=== PATIENT | female | born 1955 | race Caucasian/White ===

== ENCOUNTER 2020-04-19 21:27 | Emergency (ER) | payer OTHER ==
[2020-04-19] MEDS ORDERED: HYDROcodone 10MG/APAP 325MG 1 EA TAB PO ONE (22:14)
[2020-04-19] MEDS ORDERED: predniSONE 10 MG TAB PO ONE (22:14)
--- NOTE | 2020-04-19 22:17 | ED.PDOC ---
History of Present Illness - General Chief Complaint: Respiratory Problem Stated Complaint: Cough, body aches Time Seen by Provider: 04/19/20 22:12 Additional Information: Patient is a 64-year-old female who presents to the ED with chief complaint of Covid-like symptoms. Patient has had sinus congestion for 5 days went to see her PCP who prescribed Augmentin. Shortly after that patient's came down with Covid and now patient has continued sinus congestion with frontal headache, occasional dry cough, generalized weakness and muscle aches. She denies fever or chills, chest pain or shortness of breath. Patient is otherwise healthy with no complaints. - History of Present Illness Allergies/Adverse Reactions: Allergies Sulfa Antibiotics Allergy (Verified 04/19/20 21:48) Home Medications: Ambulatory Orders Acetaminophen [Tylenol] 650 mg PO Q6H #50 tab 04/19/20 Albuterol Inhaler [Ventolin Hfa Inhaler] 2 puff INH Q4H PRN #1 inh 04/19/20 Cetirizine HCl [ZyrTEC] 10 mg PO BEDTIME 04/19/20 DULoxetine HCL [Cymbalta] 20 mg DAILY 04/19/20 Fesoterodine Fumarate [Toviaz] 4 mg PO DAILY 04/19/20 Insulin Aspart Protamine/ (70-30) 100 Unit/ml BID 04/19/20 Lisinopril 60 mg DAILY 04/19/20 Metformin HCl [Fortamet] 1,000 mg PO BID 04/19/20 Metoclopramide HCl 5 mg PO BEDTIME 04/19/20 Nortriptyline HCl [Nortriptyline Hydrochlori] 10 mg BEDTIME 04/19/20 Pantoprazole Sodium [Pantoprazole Sodium Dr] 40 mg PO BID 04/19/20 Prednisone 40 mg PO DAILY #10 tab 04/19/20 Pseudoephedrine HCl [Sudafed 12 Hour] 120 mg PO BID #10 tab 04/19/20 Singulair 10 mg BEDTIME 04/19/20 tiZANidine [Zanaflex] 4 mg PO BID 04/19/20 Review of Systems - Review of Systems Constitutional: States: malaise, weakness EENTM: States: see HPI Respiratory: States: cough. Denies: short of breath Cardiology: States: no symptoms reported. Denies: chest pain, palpitations Gastrointestinal/Abdominal: States: no symptoms reported. Denies: abdominal pain, nausea, vomiting Musculoskeletal: States: muscle pain Skin: States: no symptoms reported. Denies: rash Neurological: States: headache All other Systems: Reviewed and Negative Past Medical History (General) - Patient Medical History Hx Seizures: No Hx Stroke: No Hx Dementia: No Hx Asthma: No Hx of COPD: No Hx Cardiac Disorders: No Hx Congestive Heart Failure: No Hx Pacemaker: No Hx Hypertension: Yes Hx Thyroid Disease: No Hx Diabetes: Yes Hx Gastroesophageal Reflux: Yes Hx Renal Disease: No Hx Cancer: Yes - Skin Hx of HIV: No Hx Hepatitis C: No Hx MRSA: No Surgical History: tonsillectomy, Hysterectomy, other - Vaccination History Hx Tetanus, Diphtheria Vaccination: Yes Hx Influenza Vaccination: Yes Hx Pneumococcal Vaccination: Yes - Social History Hx Tobacco Use: No Hx Chewing Tobacco Use: No Hx Alcohol Use: No Hx Substance Use: No Hx Substance Use Treatment: No Hx Depression: No Feels Threatened In Home Enviroment: No Feels Threatened In a Relationship: No Hx Physical Abuse: No Hx Emotional Abuse: No Hx Suspected Abuse: No - Female History Patient is a Female of Child Bearing Age (10 -59 yrs old): No Patient : No - Triage Comment ED Triage Comment: The patient walked from the waiting room into ER room 4. She was alert and oriented times 4 and complained of shortness of breath, fever, body aches and headache. She denied chest pain, nausea and diarrhea. She is currently being treated with antibiotics by her doctor for sinus infection but her does have COVID. Her symptoms have betting worse over the past week even with antibiotic treatment. Physical Exam - Physical Exam General Appearance: Alert, Comfortable, No apparent distress, Well Developed, Well Nourished ENT Exam: other - Mild frontal sinus tenderness to palpation. Oropharynx is clear without erythema or tonsillar exudate. 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 She is Covid positive but her chest x-ray shows no obvious pneumonia and I have low clinical concern for pneumonia. Patient has viral sinusitis due to Covid and I will DC with steroids and Sudafed and Tylenol patient to rest, quarantine and follow-up with her PCP. Patient's oxygen levels are acceptable and she is safe for discharge with follow-up outpatient, she does not require hospitalization. I discussed with patient to return to the ED specifically for worsening shortness of breath or difficulty breathing. Vital signs stable, patient is NAD and looks clinically well and I believe is safe for discharge with outpatient follow-up. Follow-up instructions, discharge instructions and return to ED precautions discussed with patient. Patient voices understanding and willingness to comply with instructions. All laboratory and/or radiographic results have been discussed with the patient, and all questions answered. Patient is happy with plan. Departure - Departure Clinical Impression: COVID-19, Acute viral sinusitis Disposition: Discharge to Home or Self Care Condition: Good Departure Forms: ED Discharge - Pt. Copy, Patient Portal Self Enrollment Referrals: ELEUTERIO VILLAGOMEZ MD [Primary Care Provider] - 1 Week Prescriptions: Prednisone 40 mg PO DAILY #10 tab Pseudoephedrine HCl [Sudafed 12 Hour] 120 mg PO BID #10 tab Acetaminophen [Tylenol] 650 mg PO Q6H #50 tab Albuterol Inhaler [Ventolin Hfa Inhaler] 2 puff INH Q4H PRN #1 inh PRN Reason: Shortness Of Breath/Wheezing Home Medications: Ambulatory Orders Acetaminophen [Tylenol] 650 mg PO Q6H #50 tab 04/19/20 Albuterol Inhaler [Ventolin Hfa Inhaler] 2 puff INH Q4H PRN #1 inh 04/19/20 Cetirizine HCl [ZyrTEC] 10 mg PO BEDTIME 04/19/20 DULoxetine HCL [Cymbalta] 20 mg DAILY 04/19/20 Fesoterodine Fumarate [Toviaz] 4 mg PO DAILY 04/19/20 Insulin Aspart Protamine/ (70-30) 100 Unit/ml BID 04/19/20 Lisinopril 60 mg DAILY 04/19/20 Metformin HCl [Fortamet] 1,000 mg PO BID 04/19/20 Metoclopramide HCl 5 mg PO BEDTIME 04/19/20 Nortriptyline HCl [Nortriptyline Hydrochlori] 10 mg BEDTIME 04/19/20 Pantoprazole Sodium [Pantoprazole Sodium Dr] 40 mg PO BID 04/19/20 Prednisone 40 mg PO DAILY #10 tab 04/19/20 Pseudoephedrine HCl [Sudafed 12 Hour] 120 mg PO BID #10 tab 04/19/20 Singulair 10 mg BEDTIME 04/19/20 tiZANidine [Zanaflex] 4 mg PO BID 04/19/20
--- NOTE | 2020-04-19 23:27 | RAD ---
EXAM: Chest,1 View CLINICAL INDICATION: 64-year-old female with cough. TECHNIQUE: Single view, AP portable chest was obtained. COMPARISON: None. FINDINGS: Unremarkable cardiac and mediastinal silhouette. Heart size is normal. Low lung volumes grossly clear without focal opacity, pneumothorax or pleural effusions. However, there is poor visualization of the lateral chest wall and LEFT lower lobe secondary to patient overlying breast soft tissue with the patient's bra overlying the lower chest. Upright PA and lateral radiography is recommended when the patient is clinically able. The visualized bones are within normal limits. IMPRESSION: No acute cardiopulmonary abnormalities. However, poor visualization of the bilateral lung bases secondary to overlying patient breast soft tissue. Upright PA and lateral radiography is recommended when the patient is clinically able. Electronically signed by: Rae Howell MD 04/19/2020 11:26 PM [facility]
[2020-04-19 23:56] VITALS: BP 130/62; TEMP 98.8; O2SAT 97
== END 2020-04-19 23:56 | disposition home or self-care (01) ==
LOC: ER 21:27
DX: U07.1 COVID-19 (principal); J01.90 Acute sinusitis, unspecified; K21.9 Gastro-esophageal reflux disease without esophagitis; E11.9 Type 2 diabetes mellitus without complications; I10 Essential (primary) hypertension; Z85.828 Personal history of other malignant neoplasm of skin; Z79.899 Other long term (current) drug therapy; Z79.84 Long term (current) use of oral hypoglycemic drugs; Z88.2 Allergy status to sulfonamides
CPT/HCPCS: 71045; 87635; 93005; J7512

== ENCOUNTER → 2020-05-19 | Outpatient (CLI) | payer BC | LOC: GMAE 11:45 | PROVIDERS: ATTEND Family Medicine | DX: Z00.00 Encounter for general adult medical examination without abnormal findings (principal) ==